=== PATIENT | female | born 1965 | race African-American/Black ===

== ENCOUNTER 2019-02-06 10:05 | Inpatient (IN) ==
[2019-02-06 11:49] LABS: Basophils # 0.1 10*3/uL (0.0-0.2); Basophils % 0.7 % (0.0-0.8); Eosinophils # 0.1 10*3/uL (0.0-0.87); Eosinophils % 0.7 % (0.00-10.9); Hemoglobin 14.3 GM/DL (12.0-16.0); Immature Granulocytes % 0.3 %; Immature Granulocytes Absolute 0.02 #; Lymphocytes # 2.8 10*3/uL (1.4-4.0); Lymphocytes % 40.8 % (21.3-54.2); Mean Corpuscular HGB Conc 31.8 GM/DL (32-36); Mean Corpuscular Volume 90.9 FL (87-102); Mean Platelet Volume 11.9 FL (9.6-12.0); Monocytes % 6.9 % (1.7-12.7); Neutrophils % 50.6 % (38.7-73.9); Platelet Count 188 T/CUMM (130-400); Red Blood Count 4.95 MC/CUMM (3.8-5.5); White Blood Count 6.9 T/CUMM (4-12)
[2019-02-06 11:57] LABS: PT Patient Result 11.1 SECS
[2019-02-06] MEDS ORDERED: SODIUM CHLORIDE 0.9% 250 ML IV STA (12:02)
[2019-02-06 12:11] LABS: Alanine Aminotransferase 36 U/L (13-56); Albumin 3.9 G/DL (3.4-5.0); Alkaline Phosphatase 61 U/L (45-117); Aspartate Amino Transferase 16 U/L (0-37); Blood Urea Nitrogen 22 MG/DL (7-18); Calcium 9.5 MG/DL (8.5-10.1); Glucose 108 MG/DL (74-106); Osmolality,Calculated 282.4 MOS/KG (273-304); Total Protein 7.1 G/DL (6.4-8.3); Troponin I < 0.015 NG/ML (0.00-0.045)
[2019-02-06] MEDS ORDERED: AZITHROMYCIN INJ 500 MG in SODIUM CHLORIDE 0.9% 250 ML IV SCH ×2 (13:30→15:00)
[2019-02-06] MEDS ORDERED: FUROSEMIDE 40 MG/4 ML VIAL IV STA (14:43)
[2019-02-06] MEDS ORDERED: ALBUTEROL/IPRATROPIUM 3 ML NEB RESP TX STA (14:44)
[2019-02-06] MEDS ORDERED: ALBUTEROL 2.5 MG/3 ML NEB RESP TX PRN (14:50)
[2019-02-06] MEDS ORDERED: DOBUTamine 500 MG/250 ML PREMIX IV ONE (15:09)
[2019-02-06] MEDS ORDERED: DOBUTamine 500 MG/250 ML PREMIX IV PRN (15:10)
[2019-02-06] MEDS ORDERED: MORPHINE 4 MG/1 ML VIAL IV STA (15:11)
[2019-02-06] MEDS ORDERED: ONDANSETRON 4 MG/2 ML VIAL IV STA (15:12)
[2019-02-06] MEDS ORDERED: MORPHINE 4 MG/1 ML VIAL ONE (15:12)
[2019-02-06 15:24] LABS: Apearance,Urine Slightly Hazy (Clear); Bilirubin,Urine Negative (Negative); Blood, Urine Negative (Negative); Glucose,Urine (UA) Negative (Negative); Hyaline Casts,Urine 12 /LPF (0-3); Ketones,Urine Negative (Negative); Mucus,Urine Occasional /LPF (Occasional); Nitrite,Urine Negative (Negative); Protein,Urine Negative; RBC,Urine 1 /HPF (0-4); Squamous Epithelial Cell,Urine Occasional /HPF (0-10); Urine Color Yellow (Yellow); Urine Specific Gravity 1.006 (1.001-1.035); Urine Urobilinogen < 2.0 EU/DL (0.2-1.0); WBC,Urine <1 /HPF (0-6)
[2019-02-06 15:36] LABS: ABG Base Excess -2.2 MMOL/L (-2.5-2.5); ABG HCO3 22.6 MMOL/L (20-26); ABG PCO2 30.3 MM HG (35-48); ABG PH 7.444 (7.35-7.45)
[2019-02-06 15:37] LABS: Risk Ratio 2.05; VLDL CHOLESTEROL 23.8 MG/DL
[2019-02-06] MEDS: ALBUTEROL/IPRATROPIUM 3 ML NEB RESP TX SCH (18:59)
[2019-02-06] MEDS: BENZONATATE 100 MG CAPSULE PO SCH ×2 (19:14→21:57)
[2019-02-06] MEDS: HEPARIN 5,000 UNIT/1 ML VIAL SUBCUT SCH (19:14)
[2019-02-06] MEDS: methylPREDNISolone SOD SUC 40 MG/1 ML VIAL IV SCH (19:19)
[2019-02-06] MEDS: FUROSEMIDE 40 MG TABLET PO SCH (21:57)
[2019-02-06] MEDS: LEVOFLOXACIN INJ 500 MG in PREMIX 1 EACH IV SCH (21:57)
[2019-02-06] MEDS: ATORVASTATIN 40 MG TABLET PO SCH (21:57)
[2019-02-07] MEDS: ALBUTEROL/IPRATROPIUM 3 ML NEB RESP TX SCH ×4 (01:06→19:37)
[2019-02-07] MEDS: DOBUTamine 500 MG/250 ML PREMIX IV SCH ×2 (01:41→22:07)
[2019-02-07] MEDS ORDERED: NOREPINEPHRINE 8 MG in SODIUM CHLORIDE 0.9% 242 ML IV PRN (01:42)
[2019-02-07] MEDS ORDERED: NOREPINEPHRINE 4 MG/4 ML VIAL IV ONE (02:17)
[2019-02-07] MEDS: methylPREDNISolone SOD SUC 40 MG/1 ML VIAL IV SCH ×4 (02:20→23:49)
[2019-02-07] MEDS: HEPARIN 5,000 UNIT/1 ML VIAL SUBCUT SCH ×4 (02:20→23:48)
[2019-02-07] MEDS: CARVEDILOL 6.25 MG TABLET PO SCH ×3 (03:50→20:55)
[2019-02-07] MEDS: IBUPROFEN 600 MG TABLET PO SCH ×5 (03:50→20:54)
[2019-02-07] MEDS: LISINOPRIL 2.5 MG TABLET PO SCH ×3 (03:50→22:00)
[2019-02-07 05:07] VITALS: BP 96/66
[2019-02-07 05:23] LABS: Hematocrit 41.8 VOL% (35.7-47.0); Hemoglobin 13.4 GM/DL (12.0-16.0); Immature Granulocytes % 0.5 %; Immature Granulocytes Absolute 0.03 #; Lymphocytes # 0.7 10*3/uL (1.4-4.0); Lymphocytes % 11.8 % (21.3-54.2); Mean Corpuscular HGB Conc 32.1 GM/DL (32-36); Mean Corpuscular Volume 89.5 FL (87-102); Mean Platelet Volume 11.4 FL (9.6-12.0); Monocytes % 1.3 % (1.7-12.7); Neutrophils % 86.4 % (38.7-73.9); Platelet Count 191 T/CUMM (130-400); Red Blood Count 4.67 MC/CUMM (3.8-5.5); Red Cell Distribution Width 13.6 % (9.3-17.3)
[2019-02-07 06:01] LABS: Albumin 3.9 G/DL (3.4-5.0); Bilirubin,Total 2.5 MG/DL (0.2-1.0); Calcium 9.3 MG/DL (8.5-10.1); Osmolality,Calculated 281.5 MOS/KG (273-304); Total Protein 7.1 G/DL (6.4-8.3)
[2019-02-07] MEDS: CHOLECALCIFEROL 1,000 UNIT TABLET PO SCH (08:45)
[2019-02-07] MEDS: SPIRONOLACTONE 50 MG TABLET PO SCH (08:45)
[2019-02-07] MEDS: BENZONATATE 100 MG CAPSULE PO SCH ×3 (08:46→21:48)
[2019-02-07] MEDS: ASPIRIN EC 81 MG TABLET PO SCH (08:46)
[2019-02-07] MEDS: FUROSEMIDE 40 MG TABLET PO SCH ×2 (08:47→20:54)
[2019-02-07] MEDS: LEVOFLOXACIN INJ 500 MG in PREMIX 1 EACH IV SCH (20:55)
[2019-02-07] MEDS: ATORVASTATIN 40 MG TABLET PO SCH (20:55)
[2019-02-08] MEDS: ALBUTEROL/IPRATROPIUM 3 ML NEB RESP TX SCH ×3 (00:35→12:39)
[2019-02-08 05:23] LABS: Basophils % 0.1 % (0.0-0.8); Hematocrit 40.9 VOL% (35.7-47.0); Hemoglobin 13.2 GM/DL (12.0-16.0); Immature Granulocytes % 0.4 %; Immature Granulocytes Absolute 0.05 #; Lymphocytes # 0.9 10*3/uL (1.4-4.0); Lymphocytes % 6.7 % (21.3-54.2); Mean Corpuscular HGB Conc 32.3 GM/DL (32-36); Mean Corpuscular Volume 88.9 FL (87-102); Mean Platelet Volume 11.4 FL (9.6-12.0); Monocytes % 2.6 % (1.7-12.7); Neutrophils % 90.2 % (38.7-73.9); Platelet Count 169 T/CUMM (130-400); Red Cell Distribution Width 13.8 % (9.3-17.3); White Blood Count 13.4 T/CUMM (4-12)
[2019-02-08] MEDS: DOBUTamine 500 MG/250 ML PREMIX IV SCH (05:30)
[2019-02-08 05:52] LABS: Calcium 9.3 MG/DL (8.5-10.1); Osmolality,Calculated 283.5 MOS/KG (273-304)
[2019-02-08 05:54] LABS: Albumin 3.4 G/DL (3.4-5.0); Bilirubin,Direct 0.23 MG/DL (0.0-0.20); Bilirubin,Total 1.2 MG/DL (0.2-1.0); Total Protein 6.7 G/DL (6.4-8.3)
[2019-02-08] MEDS: CHOLECALCIFEROL 1,000 UNIT TABLET PO SCH (08:01)
[2019-02-08] MEDS: IBUPROFEN 600 MG TABLET PO SCH ×2 (08:01→13:21)
[2019-02-08] MEDS: BENZONATATE 100 MG CAPSULE PO SCH ×2 (08:01→14:49)
[2019-02-08] MEDS: SPIRONOLACTONE 50 MG TABLET PO SCH (08:01)
[2019-02-08] MEDS: HEPARIN 5,000 UNIT/1 ML VIAL SUBCUT SCH ×2 (08:01→15:52)
[2019-02-08] MEDS: ASPIRIN EC 81 MG TABLET PO SCH (08:01)
[2019-02-08] MEDS: methylPREDNISolone SOD SUC 40 MG/1 ML VIAL IV SCH ×2 (08:02→16:10)
[2019-02-08] MEDS: FUROSEMIDE 40 MG TABLET PO SCH (08:02)
[2019-02-08] MEDS ORDERED: SODIUM BICARB INJ 150 MEQ in DEXTROSE 5% 850 ML IV SCH (09:00)
[2019-02-08] MEDS ORDERED: AZITHROMYCIN 250 MG TABLET PO SCH (09:00)
[2019-02-08] MEDS: LISINOPRIL 2.5 MG TABLET PO SCH (09:09)
[2019-02-08] MEDS: CARVEDILOL 6.25 MG TABLET PO SCH (09:09)
== END 2019-02-08 17:02 | disposition home or self-care (01) | DRG 139 ==
LOC: N.EDINP 10:05 → N.ED 10:05 → N.ICU 02-07 03:55 → SUATTDRO 02-07 10:33
PROVIDERS: ADMIT Hospitalist; ATTEND Hospitalist